=== PATIENT | female | born 1990 | race American Indian/Alaskan Native ===

== ENCOUNTER 2016-07-24 04:29 | Emergency (ER) | payer OTHER ==
[2016-07-24 05:26] LABS: Hematocrit 32.7 % (30.3-42.9); Hemoglobin 10.4 gm/dl (10.1-14.3); Mean Corpuscular HGB Conc 32 % (30-34); Mean Corpuscular Hemoglobin 24 pg (28-32); Mean Corpuscular Volume 76 fl (79-97); Platelet Count 252 K/mm3 (140-440); Red Cell Distribution Width 15.2 % (13.2-15.2); White Blood Count 4.2 K/mm3 (4.5-11.0)
[2016-07-24 05:41] LABS: Anion Gap 18 mmol/L; BUN/Creatinine Ratio 11.42; Blood Urea Nitrogen 8 mg/dL (7-17); Calcium 8.5 mg/dL (8.4-10.2); Carbon Dioxide 22 mmol/L (22-30); Chloride 102.6 mmol/L (98-107); Glucose 88 mg/dL (65-100); Potassium 3.7 mmol/L (3.6-5.0); Sodium 139 mmol/L (137-145)
[2016-07-24 06:00] LABS: Blastocytes % (Manual) 0 %; Diff Status Complete; Eosinophils % (Manual) 0 % (0.0-4.3); Hypochromasia 1+; Platelet Estimate Consistent w Auto
[2016-07-24] MEDS ORDERED: MOTRIN PO ONE (08:44)
[2016-07-24] MEDS ORDERED: ZOFRAN ODT PO ONE (08:44)
[2016-07-24] MEDS ORDERED: VALIUM ONE (08:51)
--- NOTE | 2016-07-24 08:52 | Emergency Department Report ---
HPI - General Chief Complaint: Headache Time Seen by Provider: 07/24/16 08:43 - HPI HPI: 26-year-old -Serbian female comes in for complaint of headache that started on about 1:00. She does admit to some nausea no other symptoms that was reported. She did tell me that she has body aches O nausea and photophobia cough she denies any sore throat and sneezing and wheezing. She does report that she is drinking fluids fine she does not have a primary care provider does not have a neurologist. She reports that Excedrin and Tylenol Advil has worked for her headaches in the past. ED Past Medical Hx - Past Medical History Previous Medical History?: Yes Additional medical history: Migrain - Surgical History Past Surgical History?: No - Social History Smoking Status: Never Smoker Substance Use Type: Alcohol - Medications Home Medications: Home Medications Medication Instructions Recorded Confirmed Last Taken Type Butalb/Acetaminophen/Caffeine 1 cap PO Q8HR PRN #30 cap 07/24/16 Unknown Rx [Fioricet 50-300-40 mg CAP] ED Review of Systems ROS: Stated complaint: MIGRAINE, FATIGUE, CHILLS Other details as noted in HPI Constitutional: denies: chills, fever ENT: denies: ear pain, throat pain Respiratory: cough Gastrointestinal: nausea. denies: vomiting, diarrhea Musculoskeletal: denies: back pain, joint swelling, arthralgia Skin: denies: rash, lesions Neurological: headache Physical Exam - Physical Exam Vital Signs: Vital Signs 07/24/16 04:35 Temperature 97.9 F Pulse Rate 66 Respiratory 18 Rate Blood Pressure 120/81 [Right] Physical Exam: GENERAL: Alert and oriented x3, no apparent distress, Normal Gait, atraumatic. HEAD: Head is normocephalic and a-traumatic. EYES: Extra ocular muscles are intact. Pupils are equal, round, and reactive to light and accommodation. EARS: symetrical, atraumatic, non tender, ear canal clear and moderate cerumen, tympanic membrance non inflamed. gross auditory nml bilaterally. NOSE: Nose symetrical, Nontender,Nares appeared normal. MOUTH:Mouth is well hydrated and without lesions. Tonsils nonerythematous or swollen, Uvula midline, Tongue not elevated. Mucous membranes are moist. Posterior pharynx clear, no exudate or lesions. Patent airways. NECK: Supple. Non edematous, No carotid bruits. No lymphadenopathy or thyromegaly. LUNGS: Symetrical with respiration, No wheezing, no rales or crackles, CTAB. HEART: S1, S2 present, regular rate and rhythm without murmur, no rubs, no gallops. NEUROLOGIC: No focal Deficit, Cranial nerves II through XII are grossly intact. No loss of sensation, No facial droop, Negative rhomberg. Finger to nose intact , gag reflex intact, tongue protrusion intact, some tenderness to palpate of her head. PSYCHIATRIC: Mood is congruent with affect, SKIN: Warm and dry, No lesions, No ulceration or induration present ED Course Vital Signs 07/24/16 04:35 Temperature 97.9 F Pulse Rate 66 Respiratory 18 Rate Blood Pressure 120/81 [Right] - Reevaluation(s) Reevaluation #1: 07/24/16 10:27 She reports she feels much better after having her medication. ED Medical Decision Making - Lab Data Result diagrams: 07/24/16 05:12 07/24/16 05:12 - Medical Decision Making 26 year old female patient presents today with headache. Lab reveals negative test. Patient is in no acute distress at this time. She will be discharged home and encouraged to follow up with a primary care provider. She is encouraged to return to the emergency room for any worsening symptoms. Given patient ibuprofen 800 mg. Valium 2 mg and Zofran 4 mg. We'll reassess patient in 30 minutes Critical care attestation.: If time is entered above; I have spent that time in minutes in the direct care of this critically ill patient, excluding procedure time. ED Disposition Clinical Impression: Headache Qualifiers: Headache type: tension-type Headache chronicity pattern: acute headache Intractability: not intractable Qualified Code(s): G44.209 - Tension-type headache, unspecified, not intractable Disposition: DISCHARGED TO HOME OR SELFCARE Is pt being admited?: No Does the pt Need Aspirin: No Condition: Stable Instructions: Aspirin/Caffeine (By mouth), Tension Headache (ED) Additional Instructions: Take her medication as prescribed. Drink plenty of fluids and rest. Return to the emergency room if symptoms continue or get worse area recommend a neurologist. Prescriptions: Butalb/Acetaminophen/Caffeine [Fioricet 50-300-40 mg CAP] 1 cap PO Q8HR PRN #30 cap PRN Reason: headache Referrals: [facility] [Provider Group] - 3-5 Days Forms: Work/School Release Form(ED), Accompanied Note
[2016-07-24] MEDS ORDERED: VALIUM PO ONE ×2 (08:54→09:15)
[2016-07-24 09:26] VITALS: BP 101/54
== END 2016-07-24 10:42 | disposition home or self-care (01) ==
LOC: ED 04:29
DX: G44.209 Tension-type headache, unspecified, not intractable (principal)
CPT/HCPCS: 36415; 80048; 84703; 85007; 85025; 99283; Q0162

== ENCOUNTER 2018-10-30 00:32 | Emergency (ER) | payer OTHER ==
[2018-10-30 00:42] VITALS: BP 136/98
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
[2018-10-30 02:05] LABS: HCG Qualitative,Urine Negative (Negative)
[2018-10-30 02:06] LABS: Bilirubin,Urine NEG (Negative); Blood,Urine NEG (Negative); Color,Urine Amber (Yellow); Mucus,Urine 3+ /HPF
[2018-10-30] MEDS ORDERED: NORCO 10/325 PO ONE (02:37)
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
== END 2018-10-30 04:36 | disposition home or self-care (01) ==
LOC: ED 00:32
DX: S01.112A Laceration without foreign body of left eyelid and periocular area, initial encounter (principal); S13.4XXA Sprain of ligaments of cervical spine, initial encounter; S00.93XA Contusion of unspecified part of head, initial encounter; X58.XXXA Exposure to other specified factors, initial encounter; Y93.89 Activity, other specified; Y92.488 Other paved roadways as the place of occurrence of the external cause; Y99.8 Other external cause status
CPT/HCPCS: 70450; 70486; 72125; 81001; 81025